=== PATIENT | male | born 1980 | race Caucasian/White ===

== ENCOUNTER 2019-03-09 07:11 | Emergency (ER) | payer SELFPAY, MEDICAID ==
[2019-03-09] MEDS: LIDOCAINE 1% (MPF) 5 ML VIAL INJ (07:26)
== END 2019-03-09 07:48 | disposition home or self-care (01) ==
LOC: FTE 07:11
DX: S61.012A Laceration without foreign body of left thumb without damage to nail, initial encounter (principal); W26.0XXA Contact with knife, initial encounter; Y92.9 Unspecified place or not applicable
CPT/HCPCS: 12001; 99282-25